=== PATIENT | female | born 1960 | race Caucasian/White ===

== ENCOUNTER 2019-09-30 18:45 | Emergency (ER) | payer OTHER ==
[~2019-09-30] VITALS: Ht 167.6 cm; Wt 89.0 kg
[2019-09-30 18:53] VITALS: BP 110/66
[2019-09-30] MEDS ORDERED: KETOROLAC 30 MG/1 ML ONE (19:18)
[2019-09-30] MEDS ORDERED: DIAZEPAM 5 MG TABLET ONE (19:18)
[2019-09-30] MEDS ORDERED: HYDROcodone/APAP 5/325 TABLET ONE (19:19)
[2019-09-30] MEDS ORDERED: HYDROcodone/APAP 5/325 TABLET PO ONE (19:30)
[2019-09-30] MEDS ORDERED: KETOROLAC 30 MG/1 ML IM ONE (19:30)
[2019-09-30] MEDS ORDERED: DIAZEPAM 5 MG TABLET PO ONE (19:30)
[2019-10-01] MEDS ORDERED: GABA600T7 PO (11:29)
[2019-10-01] MEDS ORDERED: LISI-170 PO (11:29)
== END 2019-09-30 20:53 | disposition home or self-care (01) ==
LOC: ED 20:15
DX: M54.42 Lumbago with sciatica, left side (principal)
CPT/HCPCS: 96372; 99283; J1885

== ENCOUNTER 2019-10-01 08:25 | Observation (INO) | payer OTHER ==
[~2019-10-01] VITALS: Ht 162.6 cm; Wt 89.5 kg
--- NOTE | 2019-10-01 08:32 | NUR ---
FIRST CONTACT WITH PT. PT C/O SEVERE LOWER BACK PAIN RADIATING TO LEFT LEG WITH NUMBNESS FEELING. UNABLE TO WALK AND STAND UP PER PT'S DAUGHTER. PT WAS SEEN HERE YESTERDAY FOR THE SAME. PT'S AOX4. RESPS EVEN AND UNLABORED. ALL MONITORS IN PLACE. CALL LIGHT WITHIN REACH. DAUGHTER AT BEDSIDE.
[2019-10-01] MEDS ORDERED: DIAZEPAM 5 MG/ML, 2ML IVPush ONE (09:00)
[2019-10-01] MEDS ORDERED: KETOROLAC 30 MG/1 ML IVPush ONE (09:00)
[2019-10-01] MEDS ORDERED: SODIUM CHLORIDE FLUSH 10ML SYR IVF ONE (09:00)
[2019-10-01] MEDS ORDERED: DIAZEPAM 5 MG/ML, 2ML ONE (09:02)
[2019-10-01] MEDS ORDERED: KETOROLAC 30 MG/1 ML ONE (09:03)
--- NOTE | 2019-10-01 09:16 | NUR ---
PT MEDICATED PER EMAR. PT TOLERATED WELL.
[2019-10-01] MEDS ORDERED: ONDANSETRON 2MG/ML, 2ML IVPush ONE (09:30)
[2019-10-01] MEDS ORDERED: HYDROmorphone 2 MG/ML, 1ML IVPush PRN (09:30)
--- NOTE | 2019-10-01 09:37 | NUR ---
PT STATED"I FEEL BETTER NOW. I DON'T NEED MORE MEDICATIONS NOW." PA NOTIFIED.
[2019-10-01] MEDS ORDERED: HYDROmorphone 1 MG/ML, 1ML INJ ONE (10:16)
[2019-10-01] MEDS ORDERED: ONDANSETRON 2MG/ML, 2ML ONE (10:16)
--- NOTE | 2019-10-01 10:19 | NUR ---
PT MEDICATED PER EMAR FOR PAIN. PT TOLERATED WELL.
--- NOTE | 2019-10-01 10:42 | NUR ---
URINE CUP IN ROOM. PT AWARE OF UA.
--- NOTE | 2019-10-01 11:02 | NUR ---
PT AMB TO BR AND BACK TO ROOM WITH PT'S DAUGHTER. URINE PROVIDED. URINE COLLECTED AND UA SENT.
[2019-10-01 11:12] LABS: MICROSCOPIC AUTO
[2019-10-01] MEDS ORDERED: GABA600T7 PO (11:29)
[2019-10-01] MEDS ORDERED: LISI-170 PO (11:29)
--- NOTE | 2019-10-01 11:39 | NUR ---
PT'S BP IS 96/45 AT THIS TIME. PA NOTIFIED.
[2019-10-01] MEDS ORDERED: GABAPENTIN 300 MG CAPSULE PO PRN (12:00)
[2019-10-01] MEDS ORDERED: morphine SULFATE 10 MG/ML, 1ML IVPush PRN (12:00)
[2019-10-01] MEDS ORDERED: ONDANSETRON ODT 4 MG PO PRN (12:00)
[2019-10-01] MEDS ORDERED: DIPHENHYDRAMINE 25 MG CAPSULE PO PRN (12:00)
[2019-10-01] MEDS ORDERED: ACETAMINOPHEN 325 MG TABLET PO PRN (12:00)
[2019-10-01] MEDS ORDERED: ONDANSETRON 2MG/ML, 2ML IVPush PRN (12:00)
[2019-10-01] MEDS ORDERED: ENALAPRILAT 1.25 MG/ML, 2ML IVPush PRN (12:00)
[2019-10-01] MEDS ORDERED: KETOROLAC 30 MG/1 ML IV PRN (12:00)
--- NOTE | 2019-10-01 12:21 | NUR ---
REPORT GIVEN TO JOSE MCKEON. ALL QUESTIONS ANSWERED.
[2019-10-01 13:08] VITALS: BP 111/62
[2019-10-01] MEDS: GABAPENTIN 300 MG CAPSULE PO SCH ×3 (13:23→21:00)
[2019-10-01] MEDS: HYDROmorphone 2 MG/ML, 1ML IVPush PRN (16:39)
[2019-10-01 16:44] VITALS: BP 111/62
[2019-10-01 20:03] VITALS: BP 127/69
[2019-10-02 01:19] VITALS: BP 112/56
[2019-10-02] MEDS: HYDROmorphone 2 MG/ML, 1ML IVPush PRN (01:31)
[2019-10-02 07:37] VITALS: BP 137/65
[2019-10-02] MEDS: GABAPENTIN 300 MG CAPSULE PO SCH ×2 (08:25→16:52)
[2019-10-02] MEDS ORDERED: IBUPROFEN 600 MG TABLET PO PRN (08:30)
[2019-10-02] MEDS ORDERED: METHOCARBAMOL 500 MG TABLET PO PRN (08:30)
[2019-10-02] MEDS ORDERED: MEDROL 4MG DOSEPAK PO SCH (08:30)
[2019-10-02] MEDS ORDERED: HYDROmorphone 1 MG/ML, 1ML INJ IV ONE (08:30)
[2019-10-02] MEDS ORDERED: KETOROLAC 30 MG/1 ML ONE (08:36)
[2019-10-02] MEDS ORDERED: SENNA/DOCUSATE TABLET PO SCH (09:00)
[2019-10-02] MEDS ORDERED: LISINOPRIL 20 MG TABLET PO SCH (09:00)
[2019-10-02] MEDS ORDERED: FAMOTIDINE 20 MG TABLET PO SCH (09:00)
[2019-10-02] MEDS ORDERED: KETOROLAC 30 MG/1 ML IV PRN (12:00)
[2019-10-02 13:25] VITALS: BP 100/63
[2019-10-02] MEDS ORDERED: IBUP-1222 PO (15:28)
[2019-10-02] MEDS ORDERED: METH500T7 PO (15:28)
[2019-10-02] MEDS ORDERED: METH4TAB6 PO (15:28)
[2019-10-02] MEDS ORDERED: FAMO20TA7 PO (15:28)
== END 2019-10-02 19:11 | disposition home or self-care (01) ==
LOC: ED 09:19 → EDIP 11:32 → SUATTDRO 11:35 → 3N 12:19
PROVIDERS: ADMIT Hospitalist; ATTEND Hospitalist
DX: G54.4 Lumbosacral root disorders, not elsewhere classified (principal); M17.12 Unilateral primary osteoarthritis, left knee; I10 Essential (primary) hypertension; E66.9 Obesity, unspecified; Z79.899 Other long term (current) drug therapy
CPT/HCPCS: 81001; 87086; 96374; 96375; 96376; 97162; 97166; 99285; G0378; J1170; J1885; J2270; J2405; J3360; J7509

== ENCOUNTER 2019-10-11 08:49 | Inpatient (IN) | payer OTHER ==
[~2019-10-11] VITALS: Ht 160 cm; Wt 89.0 kg
[~2019-10-11 08:49] MED LIST: FAMO20TA7 PO; GABA600T7 PO; IBUP-1222 PO; LISI-170 PO; METH4TAB6 PO; METH500T7 PO
--- NOTE | 2019-10-11 09:05 | NUR ---
MONEY LAUNDERING INVESTIGATOR: PT TEMP NOTED TO BE 103.3 PT RESTLESS IN ROOM. UNABLE TO FOLLOW COMMANDS. PER DAUGHTER ALTERED. CHART GIVEN TO DR. BLAIR.
[2019-10-11] MEDS ORDERED: SODIUM CHLORIDE FLUSH 10ML SYR IVF ONE (09:30)
[2019-10-11] MEDS ORDERED: ACETAMINOPHEN 500 MG TABLET PO ONE (09:30)
[2019-10-11] MEDS ORDERED: SODIUM CHLORIDE 0.9% 1,000ML IVBOLUS ONE (09:30)
[2019-10-11] MEDS ORDERED: FENTANYL PF 100 MCG/2ML IVPush ONE (09:30)
[2019-10-11] MEDS ORDERED: KETOROLAC 30 MG/1 ML ONE (09:30)
[2019-10-11] MEDS ORDERED: ACETAMINOPHEN 500 MG TABLET ONE (09:31)
[2019-10-11] MEDS ORDERED: ONDANSETRON 2MG/ML, 2ML ONE (09:31)
[2019-10-11 09:37] LABS: MICROSCOPIC NOT IND
[2019-10-11 09:40] LABS: BASOPHILS # (AUTO) 0.01 x10^3/uL (0-0.1); BASOPHILS % (AUTO) 0 % (0-1); EOSINOPHILS % (AUTO) 0 % (1-7); LYMPHOCYTES # (AUTO) 0.89 x10^3/uL (1-3.4); LYMPHOCYTES % (AUTO) 23 % (22-44); MD NO; MEAN CORPUSCULAR HEMOGLOBIN 31.2 pg (27.0-34.8); MEAN CORPUSCULAR HGB CONC 34.2 g/dL (32.4-35.8); MEAN CORPUSCULAR VOLUME 91.2 fL (80-100); MEAN PLATELET VOLUME 7.2 fL (7.4-10.4); MONOCYTES # (AUTO) 0.58 x10^3/uL (0.2-0.8); MONOCYTES % (AUTO) 15 % (2-9); NEUTROPHILS # (AUTO) 2.49 x10^3/uL (1.8-6.8); NEUTROPHILS % (AUTO) 63 % (42-75); PLATELET COUNT 387 x10^3/uL (130-400); RED BLOOD COUNT 4.13 x10^6/uL (3.82-5.3); RED CELL DISTRIBUTION WIDTH 12.8 % (9.6-15.2)
--- NOTE | 2019-10-11 09:42 | NUR ---
ON ARRIVAL TO ROOM 13, PT PLACED ON ALL ROOM MONITORING. IV STARTED BY MEDIC STUDENT, BC X 1 AND LABS DRAWN WITH START. PT AMBULATED TO BR WITH SBA, URINE COLLECTED/SENT TO LAB. MEDS GIVEN PER ERP ORDER FOR L LOW BACK AND LEG PAIN, N/V, SORE THROAT, FEVER. PAIN RATED 6/10. IVF BOLUS INFUSING. CALL LIGHT WITHIN REACH, FAMILY AT BS.
[2019-10-11] MEDS ORDERED: KETOROLAC 30 MG/1 ML IVPush ONE (10:00)
[2019-10-11] MEDS ORDERED: ONDANSETRON 2MG/ML, 2ML IVPush ONE (10:00)
[2019-10-11 10:02] LABS: ANION GAP 12 mmol/L (5-15); CHLORIDE 73 mmol/L (98-107)
[2019-10-11 10:06] LABS: ALANINE AMINOTRANSFERASE 26 U/L (12-78); ALBUMIN 3.7 g/dL (3.4-5.0); ALKALINE PHOSPHATASE 99 U/L (45-117); BILIRUBIN,TOTAL 0.6 mg/dL (0.2-1.0); CALCIUM 8.9 mg/dL (8.5-10.1); CREATININE 0.86 mg/dL (0.55-1.02); TOTAL PROTEIN 7.2 g/dL (6.4-8.2)
--- NOTE | 2019-10-11 10:28 | NUR ---
PT AND FAMILY UPDATED ON RESULTS. ADD ON IVF ORDER, AWAITING FROM PHARMACY. ADD ON ORDER FOR MRI. TEMP RECHECK 97.9 ORAL, PT STATES FEELING BETTER-NAUSEA AND PAIN DECREASED AT THIS TIME. CALL LIGHT WITHIN REACH.
[2019-10-11] MEDS ORDERED: POTASSIUM CHLORIDE 40 MEQ in SODIUM CHLORIDE 0.9% 500 ML IV ONE ×2 (10:30→18:30)
--- NOTE | 2019-10-11 10:51 | NUR ---
MRI SHEET COMPLETED, SPOKE WITH SOFT WORK CIGAR MACHINE OPERATOR-PT TO GO TO MRI NOW. ERP UPDATED. PT UP/AMBULATED TO BR WITH SBA FROM DTR.
[2019-10-11] MEDS ORDERED: ACET-1600 PO (11:10)
[2019-10-11] MEDS ORDERED: TRAM50TA2 PO (11:10)
[2019-10-11] MEDS ORDERED: LISI1TAB20 PO (11:10)
--- NOTE | 2019-10-11 11:23 | NUR ---
MED REQUEST TO PHARMACY
[2019-10-11] MEDS ORDERED: SODIUM CHLORIDE 0.9% 1,000 ML IV ONE (11:30)
[2019-10-11] MEDS ORDERED: GADOTERATE 10 MMOL/20 ML SYR ONE (12:34)
--- NOTE | 2019-10-11 13:27 | NUR ---
PT BACK FROM MRI. VS UPDATED IN COMPUTER. NS INFUSING. CALL TO PHARMACY INQUIRING ON IVF W/KCL NOT RECEIVED.
--- NOTE | 2019-10-11 13:42 | NUR ---
IVF DELIVERED BY GRAIN TRIMMER, INFUSING.
--- NOTE | 2019-10-11 13:43 | NUR ---
MRI RESULTS BACK, PT FOR RECHECK.
--- NOTE | 2019-10-11 14:14 | NUR ---
COVID SWAB COMPLETED/WALKED TO LAB. FAMILY UPDATED ON POC. AWAITING PRODUCTION LINE TECHNICIAN TO SEE.
--- NOTE | 2019-10-11 14:40 | NUR ---
PT ASSISTED UP TO BSC. VSS/UPDATED IN COMPUTER.
[2019-10-11 15:35] LABS: CHLORIDE,URINE RANDOM 78 mmol/L; POTASSIUM,URINE RANDOM 74 mmol/L; SODIUM,URINE RANDOM 55 mmol/L
[2019-10-11 16:41] LABS: OSMOLALITY,URINE 461 mOsm/kg (500-850)
[2019-10-11 17:08] LABS: ANION GAP 8 mmol/L (5-15); CHLORIDE 81 mmol/L (98-107)
[2019-10-11 17:09] LABS: CREATININE 0.97 mg/dL (0.55-1.02)
[2019-10-11 17:15] VITALS: BP 146/59
[2019-10-11] MEDS ORDERED: METOCLOPRAMIDE 5 MG/ML, 2ML IVPush PRN (18:00)
[2019-10-11] MEDS ORDERED: SODIUM CHLORIDE 0.9% 1,000 ML IV SCH ×4 (18:00→22:30)
[2019-10-11] MEDS ORDERED: ONDANSETRON 2MG/ML, 2ML IVPush PRN (18:00)
[2019-10-11] MEDS ORDERED: ACETAMINOPHEN 325 MG TABLET PO PRN (18:00)
[2019-10-11] MEDS ORDERED: PROMETHAZINE 25 MG/ML, 1ML IM PRN (18:00)
[2019-10-11] MEDS ORDERED: ONDA4TAB7 PO (18:59)
[2019-10-11] MEDS ORDERED: MAGNESIUM SULFATE PMX 2GM/50ML 50 ML IV ONE (19:30)
[2019-10-11 19:49] VITALS: BP 111/54
[2019-10-11] MEDS: ENOXAPARIN 40 MG/0.4 ML SQ SCH (20:07)
[2019-10-11 20:28] LABS: ANION GAP 8 mmol/L (5-15); CALCIUM 8.1 mg/dL (8.5-10.1); CHLORIDE 87 mmol/L (98-107); CREATININE 0.87 mg/dL (0.55-1.02)
[2019-10-11] MEDS ORDERED: OMNIPAQUE 350 MG/ML, 100ML BOTTLE ONE (23:07)
[2019-10-12 00:51] LABS: ANION GAP 7 mmol/L (5-15); CALCIUM 8.7 mg/dL (8.5-10.1); CHLORIDE 93 mmol/L (98-107); CREATININE 0.89 mg/dL (0.55-1.02)
[2019-10-12 04:44] VITALS: BP 98/52
[2019-10-12 05:01] LABS: BASOPHILS # (AUTO) 0.01 x10^3/uL (0-0.1); BASOPHILS % (AUTO) 0 % (0-1); EOSINOPHILS % (AUTO) 0 % (1-7); LYMPHOCYTES # (AUTO) 0.83 x10^3/uL (1-3.4); LYMPHOCYTES % (AUTO) 19 % (22-44); MD NO; MEAN CORPUSCULAR HEMOGLOBIN 30.9 pg (27.0-34.8); MEAN CORPUSCULAR VOLUME 91.1 fL (80-100); MEAN PLATELET VOLUME 7.3 fL (7.4-10.4); MONOCYTES # (AUTO) 0.61 x10^3/uL (0.2-0.8); MONOCYTES % (AUTO) 14 % (2-9); NEUTROPHILS # (AUTO) 2.97 x10^3/uL (1.8-6.8); NEUTROPHILS % (AUTO) 67 % (42-75); PLATELET COUNT 320 x10^3/uL (130-400); RED BLOOD COUNT 4.06 x10^6/uL (3.82-5.3); RED CELL DISTRIBUTION WIDTH 12.9 % (9.6-15.2)
[2019-10-12 05:14] LABS: ALBUMIN 3.4 g/dL (3.4-5.0); ANION GAP 8 mmol/L (5-15); CALCIUM 8.7 mg/dL (8.5-10.1); CHLORIDE 96 mmol/L (98-107)
[2019-10-12 05:25] LABS: ALANINE AMINOTRANSFERASE 29 U/L (12-78); ALKALINE PHOSPHATASE 88 U/L (45-117); BILIRUBIN,TOTAL 0.6 mg/dL (0.2-1.0); CREATININE 0.84 mg/dL (0.55-1.02); TOTAL PROTEIN 6.6 g/dL (6.4-8.2)
[2019-10-12 07:41] LABS: ANION GAP 8 mmol/L (5-15); CALCIUM 8.7 mg/dL (8.5-10.1); CHLORIDE 97 mmol/L (98-107); CREATININE 0.84 mg/dL (0.55-1.02)
[2019-10-12 08:00] VITALS: BP 99/52
[2019-10-12 12:00] VITALS: BP 112/64
[2019-10-12] MEDS ORDERED: SODIUM CHLORIDE 0.9% 1,000 ML IV SCH (18:00)
[2019-10-12] MEDS: DOXYCYCLINE 100 MG in DEXTROSE 5% 250 ML IV SCH (20:14)
[2019-10-12 20:42] VITALS: BP 101/55
[2019-10-12] MEDS: ENOXAPARIN 40 MG/0.4 ML SQ SCH (21:43)
[2019-10-12] MEDS: CEFTRIAXONE PMX 1GM/50ML 50 ML IV SCH (22:26)
[2019-10-13] VITALS (9 sets, daily range): BP systolic 93–129; BP diastolic 55–80
[2019-10-13 04:58] LABS: BASOPHILS # (AUTO) 0.02 x10^3/uL (0-0.1); BASOPHILS % (AUTO) 0 % (0-1); EOSINOPHILS % (AUTO) 0 % (1-7); LYMPHOCYTES # (AUTO) 1.74 x10^3/uL (1-3.4); LYMPHOCYTES % (AUTO) 36 % (22-44); MD NO; MEAN PLATELET VOLUME 7.4 fL (7.4-10.4); MONOCYTES # (AUTO) 0.62 x10^3/uL (0.2-0.8); MONOCYTES % (AUTO) 13 % (2-9); NEUTROPHILS # (AUTO) 2.45 x10^3/uL (1.8-6.8); NEUTROPHILS % (AUTO) 51 % (42-75); PLATELET COUNT 294 x10^3/uL (130-400); RED BLOOD COUNT 4.22 x10^6/uL (3.82-5.3); RED CELL DISTRIBUTION WIDTH 12.9 % (9.6-15.2)
[2019-10-13 04:59] LABS: ANION GAP 7 mmol/L (5-15); CALCIUM 8.7 mg/dL (8.5-10.1); CHLORIDE 98 mmol/L (98-107); CREATININE 0.81 mg/dL (0.55-1.02)
[2019-10-13 07:44] LABS: ALBUMIN 3.3 g/dL (3.4-5.0); BILIRUBIN, DIRECT 0.2 mg/dL (0.1-0.2)
[2019-10-13 07:46] LABS: BILIRUBIN,INDIRECT 0.2 mg/dL (0.0-2.0); BILIRUBIN,TOTAL 0.4 mg/dL (0.2-1.0); TOTAL PROTEIN 6.8 g/dL (6.4-8.2)
[2019-10-13] MEDS ORDERED: ENOXAPARIN 80 MG/0.8 ML SQ SCH (08:00)
[2019-10-13] MEDS ORDERED: PHARMACY INSTRUCTION MC PRN ×2 (08:00→11:00)
[2019-10-13 08:14] LABS: TROPONIN I < 0.015 ng/mL (0.000-0.045)
[2019-10-13 08:28] LABS: D-DIMER 0.29 ug/mlFEU (0.00-0.52); INTERNATIONAL NORMALIZED RATIO 0.99 (0.93-1.1); PROTHROMBIN TIME 10.2 Seconds (9.6-11.5)
[2019-10-13] MEDS ORDERED: OMNIPAQUE 350 MG/ML, 100ML BOTTLE ONE (08:35)
[2019-10-13 08:56] LABS: HCT (SEDRATE) 35.8 % (34.6-47.8)
[2019-10-13] MEDS ORDERED: CHOLECALCIFEROL 1,000 UNIT TABLET PO SCH (09:00)
[2019-10-13] MEDS: ASCORBIC ACID 500 MG TABLET PO SCH ×3 (09:04→16:07)
[2019-10-13] MEDS: DOXYCYCLINE 100 MG in DEXTROSE 5% 250 ML IV SCH ×2 (09:04→20:10)
[2019-10-13] MEDS: ZINC SULFATE 220 MG CAPSULE PO SCH (09:05)
[2019-10-13] MEDS: THIAMINE 100MG TABLET PO SCH ×2 (09:05→20:11)
[2019-10-13] MEDS: DEXAMETHASONE 4 MG TABLET PO SCH (09:05)
[2019-10-13] MEDS: POTASSIUM CHLORIDE 20 MEQ TAB.ER.PRT PO SCH ×4 (09:05→20:10)
[2019-10-13] MEDS: METHOCARBAMOL 500 MG TABLET PO PRN (10:30)
[2019-10-13] MEDS ORDERED: REMDESIVIR 200 MG in SODIUM CHLORIDE 0.9% 250 ML IVPB ONE ×2 (11:00→11:15)
[2019-10-13 12:35] LABS: TROPONIN I < 0.015 ng/mL (0.000-0.045)
[2019-10-13] MEDS ORDERED: SODIUM CHLORIDE 0.9% 1,000 ML IV SCH (19:00)
[2019-10-13 20:24] LABS: TROPONIN I < 0.015 ng/mL (0.000-0.045)
[2019-10-13] MEDS: CEFTRIAXONE PMX 1GM/50ML 50 ML IV SCH (22:10)
[2019-10-14 01:05] VITALS: BP 108/71
[2019-10-14 05:50] LABS: BASOPHILS # (AUTO) 0.01 x10^3/uL (0-0.1); BASOPHILS % (AUTO) 0 % (0-1); EOSINOPHILS # (AUTO) 0.02 x10^3/uL (0-0.4); EOSINOPHILS % (AUTO) 1 % (1-7); LYMPHOCYTES # (AUTO) 1.34 x10^3/uL (1-3.4); LYMPHOCYTES % (AUTO) 34 % (22-44); MD NO; MEAN CORPUSCULAR HEMOGLOBIN 31.1 pg (27.0-34.8); MEAN CORPUSCULAR HGB CONC 34.2 g/dL (32.4-35.8); MEAN PLATELET VOLUME 7.1 fL (7.4-10.4); MONOCYTES # (AUTO) 0.48 x10^3/uL (0.2-0.8); MONOCYTES % (AUTO) 12 % (2-9); NEUTROPHILS % (AUTO) 53 % (42-75); PLATELET COUNT 290 x10^3/uL (130-400); RED BLOOD COUNT 3.62 x10^6/uL (3.82-5.3); RED CELL DISTRIBUTION WIDTH 13.4 % (9.6-15.2)
[2019-10-14 05:59] LABS: ALANINE AMINOTRANSFERASE 24 U/L (12-78); ALBUMIN 3.1 g/dL (3.4-5.0); ANION GAP 8 mmol/L (5-15); CALCIUM 8.8 mg/dL (8.5-10.1); CHLORIDE 102 mmol/L (98-107); CREATININE 0.68 mg/dL (0.55-1.02)
[2019-10-14 06:01] LABS: ALKALINE PHOSPHATASE 80 U/L (45-117); BILIRUBIN,TOTAL 0.3 mg/dL (0.2-1.0); TOTAL PROTEIN 6.4 g/dL (6.4-8.2)
[2019-10-14 07:46] VITALS: BP 127/76
[2019-10-14] MEDS ORDERED: CHOLECALCIFEROL 5,000u TAB PO SCH (09:00)
[2019-10-14] MEDS ORDERED: ENOXAPARIN 40 MG/0.4 ML SQ SCH (09:00)
[2019-10-14] MEDS: METHOCARBAMOL 500 MG TABLET PO PRN (09:15)
[2019-10-14] MEDS: THIAMINE 100MG TABLET PO SCH (09:15)
[2019-10-14] MEDS: ZINC SULFATE 220 MG CAPSULE PO SCH (09:15)
[2019-10-14] MEDS: DEXAMETHASONE 4 MG TABLET PO SCH (09:15)
[2019-10-14] MEDS: ASCORBIC ACID 500 MG TABLET PO SCH (09:18)
[2019-10-14] MEDS: DOXYCYCLINE 100 MG in DEXTROSE 5% 250 ML IV SCH (09:18)
[2019-10-14] MEDS ORDERED: DOXY100T51 PO (09:52)
[2019-10-14] MEDS ORDERED: REMDESIVIR 100 MG in SODIUM CHLORIDE 0.9% 250 ML IVPB SCH (11:30)
== END 2019-10-14 12:52 | disposition home or self-care (01) | DRG 177 ==
LOC: ED 09:25 → EDIP 13:55 → ICU 17:08 → 4EST 10-13 15:28
PROVIDERS: ADMIT Internal Medicine; ATTEND Hospitalist
PROC: 30233L1 Transfusion of Nonautologous Fresh Plasma into Peripheral Vein, Percutaneous Approach (ICD-10-PCS; principal; 2019-10-13)
PROC: XW033E5 Introduction of Remdesivir Anti-infective into Peripheral Vein, Percutaneous Approach, New Technology Group 5 (ICD-10-PCS; 2019-10-13)
DX: U07.1 COVID-19 (principal); J12.89 Other viral pneumonia; E87.1 Hypo-osmolality and hyponatremia; E66.9 Obesity, unspecified; Z68.34 Body mass index [BMI] 34.0-34.9, adult; Z88.8 Allergy status to other drugs, medicaments and biological substances; E83.42 Hypomagnesemia; G89.29 Other chronic pain; E87.6 Hypokalemia; I10 Essential (primary) hypertension; M51.17 Intervertebral disc disorders with radiculopathy, lumbosacral region
CPT/HCPCS: 36415; 71045; 71275; 72157; 72158; 74177; 80048; 80053; 80076; 81003; 82436; 82728; 83605; 83615; 83735; 83930; 83935; 84100; 84133; 84145; 84300; 84443; 84484; 85025; 85379; 85384; 85610; 85651; 85730; 86140; 86850; 86900; 87040; 87081; 87635; 93005; G0378; J0696; J1650; J1885; J2405; J3480; J7060; Q9967; A9575; J3475; J7030; J7040; J7050; P9017

== ENCOUNTER 2019-10-27 09:13 | Inpatient (IN) | payer OTHER ==
[~2019-10-27] VITALS: Ht 160 cm; Wt 85.0 kg
[~2019-10-27 09:13] MED LIST changes: +ACET-1600 PO; +DOXY100T51 PO; +LISI1TAB20 PO; +ONDA4TAB7 PO; +TRAM50TA2 PO
--- NOTE | 2019-10-27 09:32 | NUR ---
pt biba for c/o midline lower back pain radiating to left leg x 2 months, fluctuating. report taken waiter/waitress captain by ems. pt denies injury/trauma. pt denies bowel/bladder dysfunction. pt awaiting OP steriod injection for same sx, pain intolerable today. pt initially nonambulatory on scene, given 5mg morphine and 100mcg fentanyl waiter/waitress captain by ems with some effect, still rates pain at level 9/10 on arrival pt was covid + 10/11/19, pt denies symptoms and states she was given OK by health department this week to discontinue quarantine pt attached to bp and spo2 monitors. call light in reach. pt dressed in gown, examined by MOHINI Richards, pt is mostly [place] speaking, pt declines interpretive services and requests daughter Angella translates for her. awaiting orders from MD at this time, MD aware of meds given waiter/waitress captain.
[2019-10-27] MEDS ORDERED: OXYcodone/APAP 10/325MG TABLET ONE (09:40)
[2019-10-27] MEDS ORDERED: ONDANSETRON 2MG/ML, 2ML ONE (09:40)
[2019-10-27] MEDS ORDERED: ONDANSETRON 2MG/ML, 2ML IVPush ONE (10:00)
[2019-10-27] MEDS ORDERED: OXYcodone/APAP 10/325MG TABLET PO ONE (10:00)
--- NOTE | 2019-10-27 10:42 | NUR ---
pt reports pain improved slightly after medical technicians, ambulatory to bathroom with family assist.
[2019-10-27] MEDS ORDERED: DIAZEPAM 5 MG/ML, 2ML IV ONE (11:00)
[2019-10-27] MEDS ORDERED: DIAZEPAM 5 MG/ML, 2ML ONE (11:07)
--- NOTE | 2019-10-27 11:15 | NUR ---
pt reports back pain worsened after bathroom trip, pt back in bed with bp and spo2 monitors in place. pt awake, alert, anxious. resps even and unlabored. MD aware of increased pain, IV valium ordered and admin, pt tolerating well. daughter at bedside.
--- NOTE | 2019-10-27 12:00 | NUR ---
report given to MIKE Molina who is assuming care, pt is awake, alert, resps even and unlabored. pt reports mild improvement of pain. oxygen applied s/p valium d/t brief episode of hypoxia, pt tolerating oxygen at 2L/min. no s/sx respiratory compromise. awaiting MD recheck and dispo.
--- NOTE | 2019-10-27 12:03 | NUR ---
Pt provided with H20
--- NOTE | 2019-10-27 12:44 | NUR ---
PT CHART UP FOR RECHECK.
[2019-10-27] MEDS ORDERED: HYDROmorphone 1 MG/ML, 1ML INJ ONE (13:37)
[2019-10-27] MEDS: HYDROmorphone 2 MG/ML, 1ML IVPush PRN ×2 (13:40→17:47)
--- NOTE | 2019-10-27 14:48 | NUR ---
Pt medicated for pain.
--- NOTE | 2019-10-27 14:49 | NUR ---
Report to Lo MCKEON
[2019-10-27] MEDS ORDERED: ONDANSETRON 4 MG TABLET PO PRN (15:00)
[2019-10-27] MEDS ORDERED: IBUPROFEN 800 MG TABLET PO PRN (15:00)
[2019-10-27 15:20] LABS: BASOPHILS # (AUTO) 0.02 x10^3/uL (0-0.1); BASOPHILS % (AUTO) 1 % (0-1); EOSINOPHILS % (AUTO) 0 % (1-7); LYMPHOCYTES # (AUTO) 1.59 x10^3/uL (1-3.4); LYMPHOCYTES % (AUTO) 33 % (22-44); MD NO; MEAN CORPUSCULAR HEMOGLOBIN 31.4 pg (27.0-34.8); MEAN CORPUSCULAR HGB CONC 33.7 g/dL (32.4-35.8); MEAN CORPUSCULAR VOLUME 93.3 fL (80-100); MEAN PLATELET VOLUME 6.8 fL (7.4-10.4); MONOCYTES # (AUTO) 0.42 x10^3/uL (0.2-0.8); MONOCYTES % (AUTO) 9 % (2-9); NEUTROPHILS # (AUTO) 2.74 x10^3/uL (1.8-6.8); NEUTROPHILS % (AUTO) 57 % (42-75); PLATELET COUNT 343 x10^3/uL (130-400); RED BLOOD COUNT 3.82 x10^6/uL (3.82-5.3); RED CELL DISTRIBUTION WIDTH 15.1 % (9.6-15.2)
[2019-10-27 15:27] LABS: ALANINE AMINOTRANSFERASE 21 U/L (12-78); ALBUMIN 3.8 g/dL (3.4-5.0); ANION GAP 10 mmol/L (5-15); CALCIUM 9.4 mg/dL (8.5-10.1); CHLORIDE 102 mmol/L (98-107); CREATININE 0.81 mg/dL (0.55-1.02)
[2019-10-27 15:29] LABS: ALKALINE PHOSPHATASE 90 U/L (45-117); BILIRUBIN,TOTAL 0.4 mg/dL (0.2-1.0); TOTAL PROTEIN 7.4 g/dL (6.4-8.2)
[2019-10-27] MEDS ORDERED: ONDANSETRON 2MG/ML, 2ML IVPush PRN (15:30)
[2019-10-27 15:45] VITALS: BP 115/76
[2019-10-27] MEDS ORDERED: MAGNESIUM SULFATE PMX 2GM/50ML 50 ML IV ONE (19:00)
[2019-10-27 19:39] VITALS: BP 115/76
[2019-10-27] MEDS ORDERED: POTASSIUM CHLORIDE 20 MEQ TAB.ER.PRT PO ONE (21:00)
[2019-10-27] MEDS: METHOCARBAMOL 500 MG TABLET PO PRN (21:23)
[2019-10-27] MEDS: HYDROmorphone 1 MG/ML, 1ML INJ IV PRN (23:46)
[2019-10-28 00:43] VITALS: BP 112/71
[2019-10-28] MEDS: HYDROmorphone 1 MG/ML, 1ML INJ IV PRN ×5 (05:55→22:11)
[2019-10-28 07:13] VITALS: BP 101/64
[2019-10-28] MEDS: METHOCARBAMOL 500 MG TABLET PO PRN (08:18)
[2019-10-28] MEDS: HYDROCHLOROTHIAZIDE 25 MG TABLET PO SCH (08:18)
[2019-10-28] MEDS: LISINOPRIL 20 MG TABLET PO SCH (08:18)
[2019-10-28] MEDS ORDERED: POTASSIUM CHLORIDE 20 MEQ TAB.ER.PRT PO ONE (09:00)
[2019-10-28 12:29] VITALS: BP 106/72
[2019-10-28] MEDS: GABAPENTIN 300 MG CAPSULE PO SCH ×2 (15:56→21:20)
[2019-10-28] MEDS: LIDODERM 5% PATCH TD SCH (15:58)
[2019-10-28] MEDS ORDERED: GABAPENTIN 300 MG CAPSULE PO SCH (16:00)
[2019-10-28 21:46] VITALS: BP 105/68
[2019-10-29] MEDS: LIDODERM REMOVE PATCH NOTE XX SCH (03:30)
[2019-10-29 03:37] VITALS: BP 109/73
[2019-10-29 06:31] VITALS: BP 105/68
[2019-10-29 08:17] LABS: ANION GAP 8 mmol/L (5-15); CALCIUM 9.5 mg/dL (8.5-10.1); CHLORIDE 102 mmol/L (98-107)
[2019-10-29 08:19] LABS: BASOPHILS # (AUTO) 0.02 x10^3/uL (0-0.1); BASOPHILS % (AUTO) 0 % (0-1); EOSINOPHILS # (AUTO) 0.04 x10^3/uL (0-0.4); EOSINOPHILS % (AUTO) 1 % (1-7); LYMPHOCYTES # (AUTO) 1.09 x10^3/uL (1-3.4); LYMPHOCYTES % (AUTO) 24 % (22-44); MD NO; MEAN CORPUSCULAR HEMOGLOBIN 31.4 pg (27.0-34.8); MEAN CORPUSCULAR HGB CONC 33.3 g/dL (32.4-35.8); MEAN CORPUSCULAR VOLUME 94.2 fL (80-100); MEAN PLATELET VOLUME 6.9 fL (7.4-10.4); MONOCYTES # (AUTO) 0.41 x10^3/uL (0.2-0.8); MONOCYTES % (AUTO) 9 % (2-9); NEUTROPHILS # (AUTO) 3.05 x10^3/uL (1.8-6.8); NEUTROPHILS % (AUTO) 66 % (42-75); PLATELET COUNT 350 x10^3/uL (130-400); RED BLOOD COUNT 3.79 x10^6/uL (3.82-5.3); RED CELL DISTRIBUTION WIDTH 15.4 % (9.6-15.2)
[2019-10-29] MEDS ORDERED: IBUPROFEN 200 MG TABLET ONE (09:01)
[2019-10-29] MEDS: GABAPENTIN 300 MG CAPSULE PO SCH ×3 (09:08→20:24)
[2019-10-29] MEDS: LISINOPRIL 20 MG TABLET PO SCH (09:08)
[2019-10-29] MEDS: METHOCARBAMOL 500 MG TABLET PO PRN ×2 (09:08→16:35)
[2019-10-29] MEDS: HYDROCHLOROTHIAZIDE 25 MG TABLET PO SCH (09:09)
[2019-10-29 12:15] VITALS: BP 97/65
[2019-10-29] MEDS: HYDROmorphone 1 MG/ML, 1ML INJ IV PRN (13:17)
[2019-10-29] MEDS: PANTOPRAZOLE 40 MG IV IVPush SCH (16:35)
[2019-10-29] MEDS: DEXAMETHASONE 4 MG/ML, 1ML IVPush SCH (16:35)
[2019-10-29] MEDS: LIDODERM 5% PATCH TD SCH (16:35)
[2019-10-29 19:50] VITALS: BP 99/57
[2019-10-30 00:43] VITALS: BP 110/74
[2019-10-30] MEDS: LIDODERM REMOVE PATCH NOTE XX SCH (03:30)
[2019-10-30] MEDS: HYDROmorphone 1 MG/ML, 1ML INJ IV PRN ×2 (03:42→12:25)
[2019-10-30] MEDS: PANTOPRAZOLE 40 MG IV IVPush SCH (03:52)
[2019-10-30] MEDS: DEXAMETHASONE 4 MG/ML, 1ML IVPush SCH ×2 (03:52→15:36)
[2019-10-30 07:14] VITALS: BP 108/70
[2019-10-30] MEDS: HYDROCHLOROTHIAZIDE 25 MG TABLET PO SCH (09:00)
[2019-10-30] MEDS: LISINOPRIL 20 MG TABLET PO SCH (09:00)
[2019-10-30] MEDS: GABAPENTIN 300 MG CAPSULE PO SCH ×3 (09:00→20:48)
[2019-10-30] MEDS: METHOCARBAMOL 500 MG TABLET PO PRN (09:04)
[2019-10-30 12:20] VITALS: BP 122/79
[2019-10-30] MEDS ORDERED: MAGNESIUM HYDROXIDE 8%, 30ML UDC PO PRN (13:30)
[2019-10-30] MEDS ORDERED: BISACODYL 10 MG SUPP PR PRN (13:30)
[2019-10-30] MEDS ORDERED: METHYLNALTREXONE 12 MG/0.6 ML SYR SQ SCH (13:30)
[2019-10-30] MEDS ORDERED: SENNA/DOCUSATE TABLET PO PRN (13:30)
[2019-10-30] MEDS: OXYcodone/APAP 7.5/325MG TABLET PO PRN ×2 (15:36→20:47)
[2019-10-30] MEDS: LIDODERM 5% PATCH TD SCH (15:36)
[2019-10-30 20:44] VITALS: BP 116/74
[2019-10-30] MEDS: PANTOPRAZOLE 40MG TABLET PO SCH (20:48)
[2019-10-31 01:10] VITALS: BP 100/58
[2019-10-31] MEDS: LIDODERM REMOVE PATCH NOTE XX SCH (03:30)
[2019-10-31] MEDS: DEXAMETHASONE 4 MG/ML, 1ML IVPush SCH (03:40)
[2019-10-31] MEDS: OXYcodone/APAP 7.5/325MG TABLET PO PRN ×3 (03:40→16:06)
[2019-10-31] MEDS: METHOCARBAMOL 500 MG TABLET PO PRN (03:50)
[2019-10-31 08:22] VITALS: BP 100/53
[2019-10-31] MEDS: GABAPENTIN 300 MG CAPSULE PO SCH (10:20)
[2019-10-31] MEDS: HYDROCHLOROTHIAZIDE 25 MG TABLET PO SCH (10:20)
[2019-10-31] MEDS: PANTOPRAZOLE 40MG TABLET PO SCH (10:20)
[2019-10-31] MEDS: LISINOPRIL 20 MG TABLET PO SCH (10:20)
[2019-10-31 12:42] VITALS: BP 107/58
[2019-10-31] MEDS ORDERED: OXYcodone/APAP 7.5/325MG PO (14:44)
[2019-10-31] MEDS ORDERED: DEXA4TAB66 PO (14:44)
[2019-10-31] MEDS ORDERED: GABA300C PO (14:44)
[2019-10-31] MEDS ORDERED: LIDO700A20 TD (14:44)
[2019-10-31] MEDS: LIDODERM 5% PATCH TD SCH (16:06)
== END 2019-10-31 16:33 | disposition home or self-care (01) | DRG 551 ==
LOC: ED 10:32 → EDIP 13:53 → 4EST 15:20
PROVIDERS: ADMIT Internal Medicine; ATTEND Internal Medicine
DX: M51.17 Intervertebral disc disorders with radiculopathy, lumbosacral region (principal); U07.1 COVID-19; E87.1 Hypo-osmolality and hyponatremia; M54.9 Dorsalgia, unspecified; K59.03 Drug induced constipation; T40.605A Adverse effect of unspecified narcotics, initial encounter; E66.9 Obesity, unspecified; E87.6 Hypokalemia; G89.29 Other chronic pain; I10 Essential (primary) hypertension; Z86.19 Personal history of other infectious and parasitic diseases; Z68.33 Body mass index [BMI] 33.0-33.9, adult; Z83.3 Family history of diabetes mellitus; Z82.49 Family history of ischemic heart disease and other diseases of the circulatory system
CPT/HCPCS: 36415; 71045; 80048; 80053; 83735; 85025; 87635; 96374; 96375; G0378; J1100; J1170; J2405; J3360; Q0162; C9113; J3475